=== PATIENT | male | born 1985 | race Caucasian/White ===

== ENCOUNTER 2025-01-04 10:25 | Inpatient (IN) | payer BC ==
[2025-01-04 11:02] LABS: #Basophils 0.07 10x3/uL (0.0-0.2); #Eosinophils 0.20 10x3/uL (0.0-0.5); #Monocytes 0.76 10x3/uL (0.0-1.1); #Neutrophils 7.36 10x3/uL (1.5-8.4); %Basophils 0.6 % (0.0-2.0); %Eosinophils 1.8 % (0.0-6.0); %Lymphocytes 22.0 % (18.0-47.0); %Monocytes 7.0 % (0.0-10.0); %Neutrophils 68.0 % (40.0-75.0); Hematocrit 45.5 % (38.8-50.0); Hemoglobin 15.5 g/dL (13.5-17.5); Mean Corpuscular Hemoglobin 29.3 pg (27.0-33.0); Mean Corpuscular Volume 86.0 fL (81.2-95.1); Platelet Count 308 10x3/uL (150-450); Red Blood Cell (RBC) Count 5.29 10x6/uL (4.32-5.72); White Blood Cell (WBC) Count 10.83 10x3/uL (3.5-10.5)
[2025-01-04 11:20] LABS: Anion Gap 14 mmol/L (10-20); BUN (Urea Nitrogen) 15 mg/dL (8.9-20.6); Calc. Creatinine Clearance 0 mL/min (70-130); Carbon Dioxide 24 mmol/L (22-29); Chloride 105 mmol/L (98-107); Potassium 4.2 mmol/L (3.5-5.1); Sodium 139 mmol/L (136-145)
[2025-01-04 11:21] LABS: ALT (SGPT) 44 U/L (Less than 45); AST (SGOT) 32 U/L (11-34); Albumin 4.3 g/dL (3.1-4.5); Alkaline Phosphatase 52 U/L (40-110); Bilirubin, Total 1.1 mg/dL (0.3-1.2); Calcium 9.6 mg/dL (7.8-10.44); Globulin 3.0 g/dL (2.4-3.5); Glucose 104 mg/dL (70-105)
[2025-01-04 11:25] LABS: Troponin I 0.010 ng/mL (< 0.028)
[2025-01-04] MEDS ORDERED: Iopamidol 370 76% 100 ML VIAL ONE (11:47)
[2025-01-04] MEDS ORDERED: Aspirin Chewable 81 MG TAB ONE (12:06)
[2025-01-04 13:41] LABS: INR-International Normal Ratio 1.0; PTT 25.8 sec (22.0-33.0); Prothrombin Time 10.9 sec (9.5-12.1)
[2025-01-04 14:40] VITALS: BMI 48.9
[2025-01-04] MEDS ORDERED: Acetaminophen 500 MG TAB PO PRN (15:44)
[2025-01-04] MEDS ORDERED: Ondansetron PF 4 MG/2 ML Vial IVP PRN (15:44)
[2025-01-04] MEDS: Famotidine 20 MG TAB PO SCH (20:04)
[2025-01-04] MEDS: Apixaban 5 MG TAB PO SCH (20:04)
[2025-01-05 06:31] LABS: #Basophils 0.08 10x3/uL (0.0-0.2); #Eosinophils 0.26 10x3/uL (0.0-0.5); #Monocytes 0.74 10x3/uL (0.0-1.1); #Neutrophils 4.62 10x3/uL (1.5-8.4); %Basophils 1.0 % (0.0-2.0); %Eosinophils 3.1 % (0.0-6.0); %Lymphocytes 31.5 % (18.0-47.0); %Monocytes 8.8 % (0.0-10.0); %Neutrophils 54.9 % (40.0-75.0); Hematocrit 45.1 % (38.8-50.0); Hemoglobin 15.0 g/dL (13.5-17.5); Mean Corpuscular Hemoglobin 29.0 pg (27.0-33.0); Mean Corpuscular Volume 87.2 fL (81.2-95.1); Platelet Count 304 10x3/uL (150-450); Red Blood Cell (RBC) Count 5.17 10x6/uL (4.32-5.72); White Blood Cell (WBC) Count 8.41 10x3/uL (3.5-10.5)
[2025-01-05 06:45] LABS: Magnesium 2.2 mg/dL (1.6-2.6)
[2025-01-05] MEDS ORDERED: FLU (Fluarix Triv) 25-26 (6MOS UP)/PF 45 MCG/0.5 ML Syringe IM ONE (09:00)
[2025-01-05] MEDS: Valsartan 80 MG TAB PO SCH (09:40)
[2025-01-06 17:23] VITALS: BP 115/70; TEMP 98
== END 2025-01-06 18:20 | disposition home or self-care (01) | DRG 175 ==
LOC: CSHERS 10:25 → CSHTELE 13:42 → OBSVTOIN 01-05 13:17
PROVIDERS: ADMIT Family Medicine; ATTEND Family Medicine
PROC: 3E0234Z Introduction of Serum, Toxoid and Vaccine into Muscle, Percutaneous Approach (ICD-10-PCS; principal; 2025-01-05)
DX: I26.99 Other pulmonary embolism without acute cor pulmonale (principal); J96.01 Acute respiratory failure with hypoxia; Z68.42 Body mass index [BMI] 45.0-49.9, adult; I10 Essential (primary) hypertension; E66.01 Morbid (severe) obesity due to excess calories; Z88.8 Allergy status to other drugs, medicaments and biological substances; Z88.2 Allergy status to sulfonamides; Z79.899 Other long term (current) drug therapy; Z79.82 Long term (current) use of aspirin; Z23 Encounter for immunization
CPT/HCPCS: 36415; 71045; 71275; 80053; 83735; 83880; 84443; 84484; 85025; 85379; 85610; 85730; 93005; 93306; 93970; 94760; 96372; J1650; Q9967

== ENCOUNTER 2025-01-25 08:12 | Outpatient (CLI) | payer BC | END 2025-01-25 08:13 | disposition home or self-care (01) | LOC: CSHSLEEP 08:12 | DX: G47.33 Obstructive sleep apnea (adult) (pediatric) (principal); R53.83 Other fatigue; E66.9 Obesity, unspecified; Z68.42 Body mass index [BMI] 45.0-49.9, adult; R06.83 Snoring | CPT/HCPCS: 95800 ==